=== PATIENT | male | born 1965 | race Two or more races ===

== ENCOUNTER 2025-06-06 05:14 | Inpatient (IN) | payer BC, OTHER ==
[~2025-06-06] VITALS: Ht 160 cm; Wt 67.3 kg
--- NOTE | 2025-06-06 06:51 | ED.PDOC ---
History of Present Illness HPI Comments 60-year-old male who is Armenian-speaking presents to the ER with the chief complaint of testicular pain. Patient reports on having full body pain on Thursday of 05/31/2025. Patient has started to have testicular pain which started yesterday with no known trauma associated with nausea. Patient has bilateral flank pain which started today. Denies any other symptoms at this time. Denies chills, fever, N/V/D, SOB, CP. No other associated symptoms, modifiers, recent injuries or sick contacts present at this time. Chief Complaint: Testicle Pain Time Seen by MD: 06:50 Reviewed Notes: Nurses Notes, Medications, Allergies Allergies: Coded Allergies: NO KNOWN ALLERGIES (Unverified , 06/06/25) Information Source: Patient Mode of Arrival: Ambulatory Severity: Moderate Timing: Days Duration: Since onset, Days Prehospital treatment: None Past Medical History PAST MEDICAL HISTORY: Denies Surgical History: Denies all surgeries Family History Family History: Reviewed,noncontributory to illness, Unknown Social History Smoker: Non-Smoker Alcohol: Occasionally Drugs: Denies Drug Use Lives In: Home Constitutional: reports: others (Body pain); denies: chills, diaphoresis, fatigue, fever, malaise, sweats, weakness EENTM: denies: blurred vision, double vision, ear bleeding, ear discharge, ear drainage, ear pain, ear ringing, eye pain, eye redness, hearing loss, mouth pain, mouth swelling, nasal discharge, nose bleeding, nose congestion, nose pain, photophobia, tearing, throat pain, throat swelling, voice changes, others Respiratory: denies: cough, hemoptysis, orthopnea, SOB at rest, shortness of breath, SOB with excertion, stridor, wheezing, others Cardiovascular: denies: chest pain, dizzy spells, diaphoresis, Dyspnea on exertion, edema, irregular heart beat, left arm pain, lightheadedness, palpitations, PND, syncope, others Gastrointestinal: denies: abdomen distended, abdominal pain, blood streaked bowels, constipated, diarrhea, dysphagia, difficulty swallowing, hematemesis, melena, nausea, poor appetite, poor fluid intake, rectal bleeding, rectal pain, vomiting, others Genitourinary: reports: flank pain, testicle pain; denies: burning, dysuria, frequency, hematuria, incontinence, penile discharge, penile sore, pain, testicle swelling, urgency, others Neurological: denies: dizziness, fainting, headache, left sided numbness, left sided weakness, numbness, paresthesia, pre-existing deficit, right sided numbness, right sided weakness, seizure, speech problems, tingling, tremors, weakness, others Musculoskeletal: denies: back pain, gout, joint pain, joint swelling, muscle pain, muscle stiffness, neck pain, others Integumetry: denies: bruises, change in color, change in hair/nails, dryness, laceration, lesions, lumps, rash, wounds, others Allergic/Immunocompromised: denies: Difficulty Healing, Frequent Infections, Hives, Itching, others Hematologic/Lymphatic: denies: anemia, blood clots, easy bleeding, easy bruising, swollen glands, others Endocrine: denies: excessive hunger, excessive sweating, excessive thirst, excessive urination, flushing, intolerance to cold, intolerance to heat, unexplained weight gain, unexplained weight loss, others Psychiatric: denies: anxiety, bipolar disorder, depression, hopeless, panic disorder, schizophrenia, sleepless, suicidal, others All Other Systems: Reviewed and Negative Physical Exam General Appearance: Moderate Distress, Normal HEENT: Normal ENT Inspection, Pharynx Normal, TMs Normal Neck: Full Range of Motion, Non-Tender, Normal, Normal Inspection Respiratory: Chest Non-Tender, Lungs Clear, No Accessory Muscle Use, No Respiratory Distress, Normal Breath Sounds Cardiovascular: No Edema, No JVD, No Murmur, No Gallop, Normal Peripheral Pulses, Regular Rate/Rhythm Breast Exam: Deferred Gastrointestinal: No Organomegaly, Non Tender, No Pulsatile Mass, Normal Bowel Sounds, Soft Genitalia: Deferred Pelvic: Deferred Rectal: Deferred Extremities: No calf tenderness, Normal capillary refill, Normal inspection, Normal range of motion, Non-tender, No pedal edema Musculoskeletal : Apperance: Normal Neurologic: Alert, hull molder II-XII nml as Tested, No Motor Deficits, Normal Affect, Normal Mood, No Sensory Deficits Cerebellar Function: Normal Reflexes: Normal Skin: Dry, Normal Color, Warm Peripheral Pulses: 3+ Radial (R), 3+ Radial (L) Lymphatic: No Adenopathy Was a procedure done? Was a procedure done?: No Differential Dx Considerations may include: Inguinal strain Hernia X-Ray, Labs, Meds, VS Vital Signs Date Time Temp Pulse Resp B/P (MAP) Pulse Ox O2 Delivery O2 Flow Rate FiO2 06/06/25 08:55 80 16 110/72 06/06/25 08:25 85 16 107/65 06/06/25 08:23 97.8 85 16 107/65 (79) 97.8 06/06/25 07:46 97 Room Air 06/06/25 06:47 98.5 85 16 92/53 (66) 97 98.5 06/06/25 05:16 97.7 99 20 111/63 95 97.7 Lab Test 06/06/25 09:14 06/06/25 08:28 Range/Units Lactic Acid Level 2.2 *H 0.4-2.0 mmol/L White Blood Count 31.8 *H 4.4-10.8 10^3/uL Red Blood Count 4.06 L 4.5-5.90 10^6/uL Hemoglobin 13.5 13.5-17.5 g/dL Hematocrit 40.2 L 41.0-53.0 % Mean Corpuscular Volume 99.1 80.0-100.0 fL Mean Corpuscular Hemoglobin 33.2 H 28.0-32.0 pg Mean Corpuscular Hemoglobin Concent 33.5 32.0-36.0 g/dL Red Cell Distribution Width 13.8 11.8-14.3 % Platelet Count 144 140-450 10^3/uL Mean Platelet Volume 8.3 6.9-10.8 fL Neutrophils (%) (Auto) 37.0-80.0 % Lymphocytes (%) (Auto) 10.0-50.0 % Monocytes (%) (Auto) 0.0-12.0 % Basophils (%) (Auto) 0.0-2.0 % Neutrophils # (Auto) 1.6-8.6 10 ^3/uL Lymphocytes # (Auto) 0.4-5.4 10 ^3/uL Monocytes # (Auto) 0-1.3 10 ^3/uL Differential Total Cells Counted 100.0 100 Neutrophils % (Manual) 67 37.0-80.0 Band Neutrophils % (Manual) 14 Lymphocytes % (Manual) 10 10.0-50.0 Monocytes % (Manual) 6 0-12 Eosinophils % (Manual) 0 0-7 Basophils % (Manual) 0 0.0-2.0 Metamyelocytes % (manual) 0 Myelocytes % (Manual) 0 Promyelocytes % (Manual) 0 Blast Cells % (Manual) 2 Reactive Lymphocytes 1 Smudge Cells 2 /100 WBC Platelet Estimate Decrea Large Platelets Few Giant Platelets Few Stomatocytes Moderate Sodium Level 142 136-145 mmol/L Potassium Level 2.8 L 3.5-5.1 mmol/L Chloride Level 110 H 98-107 mmol/L Carbon Dioxide Level 19 L 20-31 mmol/L Anion Gap 13 5-15 Blood Urea Nitrogen 31 H 9-23 mg/dL Creatinine 1.69 H 0.700-1.30 mg/dL Glomerular Filtration Rate Calc 45 >90 mL/min BUN/Creatinine Ratio 18.3 10.0-20.0 Serum Glucose 120 H 74-106 mg/dL Calcium Level 8.7 8.7-10.4 mg/dL Current Medications Medications (Trade) Dose Ordered Sig/Candi Route Start Time Stop Time Status Last Admin Acetaminophen/ Hydrocodone Bitart ([place] 10/325MG Tab) 1 tab ONCE ONCE PO 06/06/25 07:00 06/06/25 07:01 DC 06/06/25 07:00 Hydromorphone HCl (Dilaudid Injection) 1 mg ONCE ONCE IV 06/06/25 07:15 06/06/25 07:16 DC 06/06/25 08:25 Ondansetron HCl (Zofran) 4 mg ONCE ONCE IV 06/06/25 07:15 06/06/25 07:16 DC 06/06/25 08:24 Sodium Chloride 1,000 ml @ 1,000 mls/hr Q1H ONCE IV 06/06/25 07:15 06/06/25 08:14 DC 06/06/25 07:15 Ceftriaxone Sodium 50 ml @ 100 mls/hr ONCE ONCE IV 06/06/25 09:15 06/06/25 09:44 DC 06/06/25 09:28 Sodium Chloride 1,000 ml @ 1,000 mls/hr Q1H ONCE IV 06/06/25 09:15 06/06/25 10:14 DC 06/06/25 09:28 Sodium Chloride 1,000 ml @ 150 mls/hr Q6H40M ONCE IV 06/06/25 09:15 06/06/25 15:54 06/06/25 09:34 PROCEDURE(s): TESUS - TESTICULAR ULTRASOUND IMPRESSION: 1. Findings concerning for acute right epididymitis orchitis. Complex right hydrocele and right scrotal thickening noted. 2. Arterial and venous waveforms documented in both testes. Patient alert. Complaining of testicular pain. Vitals stable. Blood pressure on the low side. Establish intravenous access. Was given fluids. Was given pain medication. Was given Zofran. WBC elevated. Possible sepsis. Was given Zosyn. Was given clindamycin. Ultrasound of the testicle does show orchitis. Explained to the patient. Continue monitoring. Time of 1ST Reevaluation: 07:20 Reevaluation 1ST: Unchanged Patient Education/Counseling: Diagnosis, Treatment, Prognosis Family Education/Counseling: No Family Present SEPSIS Sepsis Screen Date sepsis recognized/suspect: Jun 06, 2025 Time Sepsis recognized/suspect: 519 Recent Procedure: No On Antibiotic Therapy: No Respiratory Rate >20: No Heart Rate >90: No Temp<36 C (96.8 F) or >38.3 C: No SBP <90 or MAP <65 mmHG: No New Acute Mental Status Change: No Is the patient on CPAP, BIPAP,: No Physician Orders Testicular Ultrasound (06/06/25 06:46) Urinalysis (06/06/25 08:15) Blood Culture (06/06/25 09:04) Sodium Chloride 0.9% (06/06/25 09:15) * Urology Consult (06/06/25 09:07) Chlamydia/Gc Amplification (06/06/25 10:19) Admit (06/06/25 10:28) Code Status (06/06/25 10:28) 2 Gm Sodium Diet (06/06/25 Lunch) Hydrocodone-Acet 5/325mg Tab ([place] 5/32 (06/06/25 10:30) Ondansetron Hcl (Zofran) (06/06/25 10:30) Docusate Sodium Capsule (Colace Capsule) (06/06/25 10:30) Complete Blood Count (06/07/25 04:00) Comprehensive Metabolic Panel (06/07/25 04:00) Condition: Serious (06/06/25 10:28) Acetaminophen Tablet (Tylenol Tablet) (06/06/25 10:30) Bladder Scan (06/06/25 ) Azithromycin 500mg/ 250ml (Zithromax 50 (06/07/25 10:00) Azithromycin 500mg/ 250ml (Zithromax 50 (06/06/25 10:30) Ceftriaxone 1gm/50ml (Rocephin) (06/07/25 09:00) Vital Signs Date Time Temp Pulse Resp B/P (MAP) Pulse Ox O2 Delivery O2 Flow Rate FiO2 06/06/25 08:55 80 16 110/72 06/06/25 08:25 85 16 107/65 06/06/25 08:23 97.8 85 16 107/65 (79) 97.8 06/06/25 07:46 97 Room Air 06/06/25 06:47 98.5 85 16 92/53 (66) 97 98.5 06/06/25 05:16 97.7 99 20 111/63 95 97.7 Laboratory Tests Test 06/06/25 08:28 06/06/25 09:14 White Blood Count 31.8 10^3/uL (4.4-10.8) *H Lactic Acid Level 2.2 mmol/L (0.4-2.0) *H Medications Medications Dose Ordered Sig/Candi Route Start Time Stop Time Status Last Admin Dose Admin Acetaminophen/ Hydrocodone Bitart 1 tab ONCE ONCE PO 06/06/25 07:00 06/06/25 07:01 DC 06/06/25 07:00 Ceftriaxone Sodium 50 ml @ 100 mls/hr ONCE ONCE IV 06/06/25 09:15 06/06/25 09:44 DC 06/06/25 09:28 Hydromorphone HCl 1 mg ONCE ONCE IV 06/06/25 07:15 06/06/25 07:16 DC 06/06/25 08:25 Ondansetron HCl 4 mg ONCE ONCE IV 06/06/25 07:15 06/06/25 07:16 DC 06/06/25 08:24 Sodium Chloride 1,000 ml @ 150 mls/hr Q6H40M ONCE IV 06/06/25 09:15 06/06/25 15:54 06/06/25 09:34 Sodium Chloride 1,000 ml @ 1,000 mls/hr Q1H ONCE IV 06/06/25 07:15 06/06/25 08:14 DC 06/06/25 07:15 Sodium Chloride 1,000 ml @ 1,000 mls/hr Q1H ONCE IV 06/06/25 09:15 06/06/25 10:14 DC 06/06/25 09:28 Departure 1 Departure Time of Disposition: 07:05 Impression: Primary Impression: Sepsis, unspecified organism Qualified Codes: A41.9 - Sepsis, unspecified organism Additional Impression: Orchitis Disposition: ADMITTED INPATIENT Admit to: Med Surg Condition: Guarded Critical Care Note Critical Care Time?: No Stability Stability form required: No Heart Score Heart Score: Heart Score Response (Comments) Value History N/A 0 EKG N/A 0 Age N/A 0 Risk Factors N/A 0 Troponin N/A 0 Total 0 I personally scribed for JARON OGLESBY MD ([email or web address]) on 06/06/25 at 06:51. Electronically submitted by Alli Shahid ([email or web address]). I personally scribed for JARON OGLESBY MD ([email or web address]) on 06/06/25 at 10:43. Electronically submitted by Uri Lopez ([email or web address]). JARON OGLESBY MD Jun 06, 2025 06:51
[2025-06-06] MEDS: HYDROcodone-ACET 10/325MG TAB PO ONE (07:00)
[2025-06-06] MEDS: SODIUM CHLORIDE 0.9% 1,000 ML IV ONE ×3 (07:15→09:34)
--- NOTE | 2025-06-06 08:08 | DVH ---
US TESTICULAR ULTRASOUND HISTORY: torsion COMPARISON: None FINDINGS: Transverse and longitudinal grayscale and Doppler sonographic images were obtained of the s crotum/testicles. Right testis: Size: 4.2 x 4.1 x 3.6 cm Doppler flow: normal Echogenicity: Heterogeneous Mass:no Hydrocele: Present, complex Epididymis: Measures 1.5 cm Varicocele: Absent Other: Hyperemia, scrotal wall thickening Left testis: Size: 4.0 x 2.6 x 3.5 cm Doppler flow: normal Echogenicity: normal Mass:no Hydrocele: Present Epididymis:normal Varicocele: Absent Other:none IMPRESSION: 1. Findings concerning for acute right epididymitis orchitis. Complex right hydrocele and right scrot al thickening noted. 2. Arterial and venous waveforms documented in both testes.
[2025-06-06] MEDS: ONDANSETRON HCL 4 MG/2 ML VIAL IV ONE (08:24)
[2025-06-06] MEDS: HYDROmorphone HCL 2 MG/ML VL/or syr IV ONE (08:25)
[2025-06-06 09:02] LABS: Hematocrit 40.2 % (41.0-53.0); Hemoglobin 13.5 g/dL (13.5-17.5); Mean Corpuscular Hemoglobin 33.2 pg (28.0-32.0); Mean Corpuscular Volume 99.1 fL (80.0-100.0)
[2025-06-06 09:11] LABS: Sodium 142 mmol/L (136-145)
[2025-06-06 09:12] LABS: Anion Gap 13 (5-15); Calcium 8.7 mg/dL (8.7-10.4)
[2025-06-06 09:17] LABS: BUN/Creatinine Ratio 18.3 (10.0-20.0); Blood Urea Nitrogen 31 mg/dL (9-23); Carbon Dioxide 19 mmol/L (20-31); Chloride 110 mmol/L (98-107); Glucose 120 mg/dL (74-106); Potassium 2.8 mmol/L (3.5-5.1)
[2025-06-06 10:10] LABS: Lactic Acid w/Reflex 2.2 mmol/L (0.4-2.0)
[2025-06-06] MEDS ORDERED: DOCUSATE SOD 100 MG CAP PO PRN (10:30)
[2025-06-06 10:38] LABS: Smudge Cells 2 /100 WBC; Total Cells Counted 100.0 (100)
[2025-06-06 10:39] LABS: Giant Platelets Few; Stomatocytes Moderate
--- NOTE | 2025-06-06 10:42 | DVHHP2 ---
History of Present Illness Reason for Visit: right testicle pain History of Present Illness Abdulkadir Esquivel is a 60-year-old male with no significant past medical history who came to the hospital for right testicular pain and difficulty urinating. Patient states his pain began yesterday about 1600. He states his right testicle is swollen and very painful to the touch. Denies ever having a problem like this before. Past Surgical History: None Smoke: <1 pack per day ALCOHOL: none Drugs: None Lives: with Family Domestic Violence: Neg Review of Systems Constitutional: No: Fever, Chills, Sweats, Weakness, Malaise, Other Eyes: No: Pain, Vision change, Conjunctivae inflammation, Eyelid inflammation, Other, Redness ENT: No: Ear pain, Ear discharge, Nose pain, Nose discharge, Nose congestion, Mouth pain, Mouth swelling, Throat pain, Throat swelling, Other Respiratory: No: Cough, Dry, Shortness of breath, SOB with excertion, Wheezing, Hemoptysis, Pleuritic Pain, Sputum, Wheezing, Other Cardiovascular: No: Chest Pain, Palpitations, Orthopnea, Paroxysmal Noc. Dyspnea, Edema, Lt Headedness, Other Gastrointestinal: No: Nausea, Vomiting, Abdominal Pain, Diarrhea, Constipation, Melena, Hematochezia, Other Genitourinary: No Dysuria, No Frequency, No Incontinence, No Hematuria; Retention, Other (testicular pain) Musculoskeletal: No: other, neck pain, shoulder pain, arm pain, back pain, hand pain, leg pain, foot pain Skin: No: Rash, Lesions, Jaundice, Bruising, Other Neurological: No: Weakness, Numbness, Incoordination, Change in speech, Confusion, Seizures, Other Allergies: Coded Allergies: NO KNOWN ALLERGIES (Unverified , 06/06/25) Exam Vital Signs Vital Signs Date Time Temp Pulse Resp B/P (MAP) Pulse Ox O2 Delivery O2 Flow Rate FiO2 06/06/25 08:55 80 16 110/72 06/06/25 08:23 97.8 97.8 06/06/25 07:46 97 Room Air General Appearance: Alert, Oriented X3 HEENT: Atraumatic, PERRLA Respiratory: Clear to auscultation, Normal air movement Cardiovascular: Regular rate, Normal S1, Normal S2, No murmurs Abdominal: Normal bowel sounds, Soft, No tenderness, No hepatospenomegaly Extremities: No clubbing, No cyanosis, No edema, Normal pulses, No tenderness/swelling Skin: No rashes, No breakdown, No significant lesion Neuro: Normal gait, Normal speech, Strength at 5/5 X4 ext, Normal tone Psych/Mental Status: Mental status NL, Mood NL Labs/Xrays Labs Test 06/06/25 09:14 06/06/25 08:28 Range/Units Lactic Acid Level 2.2 *H 0.4-2.0 mmol/L White Blood Count 31.8 *H 4.4-10.8 10^3/uL Red Blood Count 4.06 L 4.5-5.90 10^6/uL Hemoglobin 13.5 13.5-17.5 g/dL Hematocrit 40.2 L 41.0-53.0 % Mean Corpuscular Volume 99.1 80.0-100.0 fL Mean Corpuscular Hemoglobin 33.2 H 28.0-32.0 pg Mean Corpuscular Hemoglobin Concent 33.5 32.0-36.0 g/dL Red Cell Distribution Width 13.8 11.8-14.3 % Platelet Count 144 140-450 10^3/uL Mean Platelet Volume 8.3 6.9-10.8 fL Neutrophils (%) (Auto) 37.0-80.0 % Lymphocytes (%) (Auto) 10.0-50.0 % Monocytes (%) (Auto) 0.0-12.0 % Basophils (%) (Auto) 0.0-2.0 % Neutrophils # (Auto) 1.6-8.6 10 ^3/uL Lymphocytes # (Auto) 0.4-5.4 10 ^3/uL Monocytes # (Auto) 0-1.3 10 ^3/uL Sodium Level 142 136-145 mmol/L Potassium Level 2.8 L 3.5-5.1 mmol/L Chloride Level 110 H 98-107 mmol/L Carbon Dioxide Level 19 L 20-31 mmol/L Anion Gap 13 5-15 Blood Urea Nitrogen 31 H 9-23 mg/dL Creatinine 1.69 H 0.700-1.30 mg/dL Glomerular Filtration Rate Calc 45 >90 mL/min BUN/Creatinine Ratio 18.3 10.0-20.0 Serum Glucose 120 H 74-106 mg/dL Calcium Level 8.7 8.7-10.4 mg/dL TESTICULAR ULTRASOUND Right testis: Size: 4.2 x 4.1 x 3.6 cm Doppler flow: normal Echogenicity: Heterogeneous Mass:no Hydrocele: Present, complex Epididymis: Measures 1.5 cm Varicocele: Absent Other: Hyperemia, scrotal wall thickening Left testis: Size: 4.0 x 2.6 x 3.5 cm Doppler flow: normal Echogenicity: normal Mass:no Hydrocele: Present Epididymis:normal Varicocele: Absent Other:none IMPRESSION: 1. Findings concerning for acute right epididymitis orchitis. Complex right hydrocele and right scrotal thickening noted. 2. Arterial and venous waveforms documented in both testes. SEPSIS Sepsis Screen Date sepsis recognized/suspect: Jun 06, 2025 Time Sepsis recognized/suspect: 822 Recent Procedure: No On Antibiotic Therapy: No Respiratory Rate >20: No Heart Rate >90: No Temp<36 C (96.8 F) or >38.3 C: No SBP <90 or MAP <65 mmHG: No New Acute Mental Status Change: No Is the patient on CPAP, BIPAP,: No Physician Orders Testicular Ultrasound (06/06/25 06:46) Complete Blood Count (06/06/25 08:15) Urinalysis (06/06/25 08:15) Manual Differential (06/06/25 08:28) Blood Culture (06/06/25 09:04) Sodium Chloride 0.9% (06/06/25 09:15) * Urology Consult (06/06/25 09:07) Chlamydia/Gc Amplification (06/06/25 10:19) Admit (06/06/25 10:28) Code Status (06/06/25 10:28) 2 Gm Sodium Diet (06/06/25 Lunch) Hydrocodone-Acet 5/325mg Tab ([place] 5/32 (06/06/25 10:30) Ondansetron Hcl (Zofran) (06/06/25 10:30) Docusate Sodium Capsule (Colace Capsule) (06/06/25 10:30) Complete Blood Count (06/07/25 04:00) Comprehensive Metabolic Panel (06/07/25 04:00) Condition: Serious (06/06/25 10:28) Acetaminophen Tablet (Tylenol Tablet) (06/06/25 10:30) Bladder Scan (06/06/25 ) Azithromycin 500mg/ 250ml (Zithromax 50 (06/07/25 10:00) Azithromycin 500mg/ 250ml (Zithromax 50 (06/06/25 10:30) Ceftriaxone Ivpb Rocephin (06/07/25 09:00) Vital Signs Date Time Temp Pulse Resp B/P (MAP) Pulse Ox O2 Delivery O2 Flow Rate FiO2 06/06/25 08:55 80 16 110/72 06/06/25 08:25 85 16 107/65 06/06/25 08:23 97.8 85 16 107/65 (79) 97.8 06/06/25 07:46 97 Room Air 06/06/25 06:47 98.5 85 16 92/53 (66) 97 98.5 06/06/25 05:16 97.7 99 20 111/63 95 97.7 Laboratory Tests Test 06/06/25 08:28 06/06/25 09:14 White Blood Count 31.8 10^3/uL (4.4-10.8) *H Lactic Acid Level 2.2 mmol/L (0.4-2.0) *H Medications Medications Dose Ordered Sig/Candi Route Start Time Stop Time Status Last Admin Dose Admin Acetaminophen/ Hydrocodone Bitart 1 tab ONCE ONCE PO 06/06/25 07:00 06/06/25 07:01 DC 06/06/25 07:00 1 TAB Ceftriaxone Sodium 50 ml @ 100 mls/hr ONCE ONCE IV 06/06/25 09:15 06/06/25 09:44 DC 06/06/25 09:28 100 MLS/HR Hydromorphone HCl 1 mg ONCE ONCE IV 06/06/25 07:15 06/06/25 07:16 DC 06/06/25 08:25 1 MG Ondansetron HCl 4 mg ONCE ONCE IV 06/06/25 07:15 06/06/25 07:16 DC 06/06/25 08:24 4 MG Sodium Chloride 1,000 ml @ 150 mls/hr Q6H40M ONCE IV 06/06/25 09:15 06/06/25 15:54 06/06/25 09:34 150 MLS/HR Sodium Chloride 1,000 ml @ 1,000 mls/hr Q1H ONCE IV 06/06/25 07:15 06/06/25 08:14 DC 06/06/25 07:15 1,000 MLS/HR Sodium Chloride 1,000 ml @ 1,000 mls/hr Q1H ONCE IV 06/06/25 09:15 06/06/25 10:14 DC 06/06/25 09:28 1,000 MLS/HR Assessment/Plan Assessment/Plan Assessment: Orchitis and epididymitis, Leukocytosis, Lactic acidosis, Hypokalemia, Possible sepsis, Plan: Admit to Med-Surg, Urology consult, IV antibiotics, IV hydration, Bladder scan, Gonorrhea/chlamydia testing, Manage/Monitor electrolytes closely, Plan discussed with: Patient, Spouse My Orders Orders - LUCILA REES Procedure Category Date Status Time Chlamydia/Gc LAB 06/06/25 Transmitted Amplification 10:19 Admit ADMIT 06/06/25 Transmitted 10:28 Code Status CODE 06/06/25 Transmitted 10:28 2 Gm Sodium Diet DIET 06/06/25 Transmitted Lunch Hydrocodone-Acet PHA 06/06/25 Transmitted 5/325mg Tab ([place] 10:30 Ondansetron Hcl PHA 06/06/25 Transmitted (Zofran) 10:30 Docusate Sodium PHA 06/06/25 Transmitted Capsule (Colace 10:30 Complete Blood Count LAB 06/07/25 Verified 04:00 Comprehensive LAB 06/07/25 Verified Metabolic Panel 04:00 Condition: Serious VJ 06/06/25 Transmitted 10:28 Acetaminophen Tablet PHA 06/06/25 Transmitted (Tylenol Tablet) 10:30 Bladder Scan ED NURSING 06/06/25 Transmitted Azithromycin 500mg/ PHA 06/07/25 Transmitted 250ml (Zithromax 50 10:00 Azithromycin 500mg/ PHA 06/06/25 Transmitted 250ml (Zithromax 50 10:30 Ceftriaxone Ivpb PHA 06/07/25 Transmitted Rocephin 09:00 Date of Service: Jun 06, 2025 Billing Provider: LUCILA REES Common Visit Codes: [id number] INP/OBS CARE (MOD) LUCILA REES Jun 06, 2025 10:41
[2025-06-06] MEDS: CLINDAMYCIN 600MG IV 50 ML IV ONE (10:46)
[2025-06-06 11:40] VITALS: BP 126/70; PULSE 80; RESP 18; TEMP 97.6; O2SAT 98
--- NOTE | 2025-06-06 12:19 | DVHINCON2 ---
Date of service: Jun 06, 2025 Referring Physician Hospitalist Reason for Consultation epididymoorchitis History of Present Illness History Source: Patient, RN Notes, MD Notes Exam Limitations: Language barrier HPI 60-year-old male who is Yemeni-speaking presents to the ER with the chief complaint of testicular pain. Patient reports on having full body pain on Thu of 05/31/2025. Patient has started to have testicular pain which started yesterday with no known trauma associated with nausea. Patient has bilateral flank pain which started today. Denies any other symptoms at this time. Denies chills, fever, N/V/D, SOB, CP. No other associated symptoms, modifiers, recent injuries or sick contacts present at this time. Past Medical History Patient Family History: Depression G8 MOTHER Diabetes mellitus G8 MOTHER Hypertension G8 MOTHER Review of Systems Genitourinary: Pain H&P Exam Vital Signs Vital Signs Date Time Temp Pulse Resp B/P (MAP) Pulse Ox O2 Delivery O2 Flow Rate FiO2 06/06/25 11:40 Room Air* 0 21 06/06/25 08:55 80 16 110/72 06/06/25 08:23 97.8 97.8 06/06/25 07:46 97 General Appeara: Well developed, Well nourished, Normal Appearance Neuro/Mental St: Alert, Oriented Appearance: Appropriate appearance, Appropriate insight Eye contact/ Speech: Cooperative, Good eye contact, Normal speech Skin Exam: Normal inspection, Normal color, Warm/dry Labs/Xrays [place] [id number] Ph: [phone] DIAGNOSTIC IMAGING Diagnostic Imaging Report : [id number] Signed PATIENT: BISHOP MYERS ACCT: [id number] UNIT: [id number] : 1965 LOC: ER ROOM / BED: / AGE / SEX: 60 / M ADM STATUS: REG ER SERVICE 0646 ORDERING PHYSICIAN: JARON OGLESBY MD PROCEDURE(s): TESUS - TESTICULAR ULTRASOUND REASON: torsion ORDER NUMBER(s): [id number], ACCESSION NUMBER(s): [id number] US TESTICULAR ULTRASOUND HISTORY: torsion COMPARISON: None FINDINGS: Transverse and longitudinal grayscale and Doppler sonographic images were obtained of the scrotum/testicles. Right testis: Size: 4.2 x 4.1 x 3.6 cm Doppler flow: normal Echogenicity: Heterogeneous Mass:no Hydrocele: Present, complex Epididymis: Measures 1.5 cm Varicocele: Absent Other: Hyperemia, scrotal wall thickening Left testis: Size: 4.0 x 2.6 x 3.5 cm Doppler flow: normal Echogenicity: normal Mass:no Hydrocele: Present Epididymis:normal Varicocele: Absent Other:none IMPRESSION: 1. Findings concerning for acute right epididymitis orchitis. Complex right hydrocele and right scrotal thickening noted. 2. Arterial and venous waveforms documented in both testes. ATED BY: KATHRYN KOO MD DICTATED DATE/TIME: 06/06/25805 SIGNED BY: KATHRYN KOO MD SIGNED DATE/TIME: 06/06/25805 CC: Labs Test 06/06/25 11:32 06/06/25 08:28 Range/Units White Blood Count 31.8 *H 4.4-10.8 10^3/uL Red Blood Count 4.06 L 4.5-5.90 10^6/uL Hemoglobin 13.5 13.5-17.5 g/dL Hematocrit 40.2 L 41.0-53.0 % Mean Corpuscular Volume 99.1 80.0-100.0 fL Mean Corpuscular Hemoglobin 33.2 H 28.0-32.0 pg Mean Corpuscular Hemoglobin Concent 33.5 32.0-36.0 g/dL Red Cell Distribution Width 13.8 11.8-14.3 % Platelet Count 144 140-450 10^3/uL Mean Platelet Volume 8.3 6.9-10.8 fL Neutrophils (%) (Auto) 37.0-80.0 % Lymphocytes (%) (Auto) 10.0-50.0 % Monocytes (%) (Auto) 0.0-12.0 % Basophils (%) (Auto) 0.0-2.0 % Neutrophils # (Auto) 1.6-8.6 10 ^3/uL Lymphocytes # (Auto) 0.4-5.4 10 ^3/uL Monocytes # (Auto) 0-1.3 10 ^3/uL Differential Total Cells Counted 100.0 100 Neutrophils % (Manual) 67 37.0-80.0 Band Neutrophils % (Manual) 14 Lymphocytes % (Manual) 10 10.0-50.0 Monocytes % (Manual) 6 0-12 Eosinophils % (Manual) 0 0-7 Basophils % (Manual) 0 0.0-2.0 Metamyelocytes % (manual) 0 Myelocytes % (Manual) 0 Promyelocytes % (Manual) 0 Blast Cells % (Manual) 2 Reactive Lymphocytes 1 Smudge Cells 2 /100 WBC Platelet Estimate Decrea Large Platelets Few Giant Platelets Few Stomatocytes Moderate Sodium Level 142 136-145 mmol/L Potassium Level 2.8 L 3.5-5.1 mmol/L Chloride Level 110 H 98-107 mmol/L Carbon Dioxide Level 19 L 20-31 mmol/L Anion Gap 13 5-15 Blood Urea Nitrogen 31 H 9-23 mg/dL Creatinine 1.69 H 0.700-1.30 mg/dL Glomerular Filtration Rate Calc 45 >90 mL/min BUN/Creatinine Ratio 18.3 10.0-20.0 Serum Glucose 120 H 74-106 mg/dL Calcium Level 8.7 8.7-10.4 mg/dL Assessment/Plan Problem List: (1) Orchitis and epididymitis (2) Sepsis, unspecified organism (3) Acute abdominal pain Plan pain meds prn scrotal elevation serial US imaging if not improving clinically monitor for abscess formation Plan discussed with: Patient, Other FEDE LAIRD NP Jun 06, 2025 12:19
[2025-06-06 12:41] VITALS: BP 110/66; PULSE 79; RESP 18; TEMP 97.6; O2SAT 99
[2025-06-06] MEDS: AZITHROMYCIN 500MG/ 250ML 250 ML IV ONE (12:53)
--- NOTE | 2025-06-06 13:12 | DVH ---
INDICATION: flank pain TECHNIQUE: Multiple real-time sonographic images of the kidneys and bladder were obtained. COMPARISON: US TESTICULAR ULTRASOUND on DOS: 06/06/25 FINDINGS: The right kidney measures 11.8 cm in length, which is normal in size. There is normal echog enicity of the right kidney. No hydronephrosis. The left kidney measures 11.5 cm in length, which is normal in size. There is normal echogenicity of the left kidney. No hydronephrosis. The urinary bladder is not well distended. At the time of the examination, the bladder volume is radha mated at 39 cc. There is no large intraluminal bladder mass. The prostate volume is estimated at 34 c c. The visualized liver parenchyma is profoundly echogenic. IMPRESSION: Normal sonographic appearance of the kidneys. No hydronephrosis. Incidental note of diffusely echogenic liver parenchyma. This may be secondary to steatosis or anoth er diffuse hepatic process. Correlate clinically and with liver function tests.
[2025-06-06] MEDS: POTASSIUM EFFERVESENT TAB 25 MEQ PO ONE (16:27)
[2025-06-06] MEDS: hydrALAZINE HCL 20 MG/ML VL IV PRN (16:29)
[2025-06-06 16:40] VITALS: BP 150/80; PULSE 97; RESP 16; TEMP 99.6; O2SAT 98
[2025-06-06 16:43] LABS: Urine Protein, UAD TRACE (Negative); Urine WBC Clumps PRESENT /hpf (None Seen)
[2025-06-06 17:44] VITALS: TEMP 99
[2025-06-06 17:53] LABS: INR 1.08 (0.9-1.15); Partial Thromboplastin Time 30.0 SEC (24.5-34.5); Prothrombin Time 11.4 sec (9.3-11.8)
[2025-06-06 20:00] VITALS: PULSE 105; RESP 18
[2025-06-06 20:54] VITALS: BP 140/70; PULSE 112; RESP 18; TEMP 98.2; O2SAT 96
[2025-06-06 21:25] LABS: Magnesium 1.2 mg/dL (1.6-2.6); Potassium 3.5 mmol/L (3.5-5.1)
[2025-06-07] VITALS (9 sets, daily range): BP systolic 124–144; BP diastolic 68–85; PULSE 75–102; RESP 14–20; TEMP 97.8–99.5; O2SAT 93–100
[2025-06-07 06:12] LABS: Hematocrit 35.4 % (41.0-53.0); Hemoglobin 12.4 g/dL (13.5-17.5); Mean Corpuscular Hemoglobin 34.1 pg (28.0-32.0); Mean Corpuscular Volume 97.5 fL (80.0-100.0)
[2025-06-07 06:27] LABS: Anion Gap 13 (5-15); BUN/Creatinine Ratio 23.3 (10.0-20.0); Blood Urea Nitrogen 20 mg/dL (9-23); Sodium 143 mmol/L (136-145); Total Protein 6.0 g/dL (5.7-8.2)
[2025-06-07 06:30] LABS: Alanine Aminotransferase 161 U/L (7-40); Albumin 3.2 g/dL (3.2-4.8); Alkaline Phosphatase 280 U/L (46-116); Bilirubin, Total 1.9 mg/dL (0.2-1.0); Calcium 8.3 mg/dL (8.7-10.4); Carbon Dioxide 19 mmol/L (20-31); Chloride 111 mmol/L (98-107); Glucose 120 mg/dL (74-106); Potassium 2.8 mmol/L (3.5-5.1)
[2025-06-07 07:00] LABS: Stomatocytes Few; Total Cells Counted 100.0 (100)
--- NOTE | 2025-06-07 08:21 | DVH ---
ULTRASOUND ABDOMEN limited, 4 QUADRANTS INDICATION: FLUID CHECK FOR POSSIBLE PARACENTESIS Evaluate for ascites. TECHNIQUE: The four quadrants of the abdomen were scanned in rodriguez-scale to assess for the presence of ascites. N o solid organ assessment was performed. FINDINGS: No ascites IMPRESSIONS: 1. No ascites
[2025-06-07] MEDS: HYDROcodone-ACET 5/325MG TAB PO PRN (10:04)
[2025-06-07] MEDS: AZITHROMYCIN 500MG/ 250ML 250 ML IV SCH (10:04)
[2025-06-07] MEDS ORDERED: VANCOMYCIN PER PHARMACY 0 MG IV SCH (14:00)
[2025-06-07] MEDS: SOD CHL 0.9%/ KCL 40MEQ 1,000 ML IV SCH (14:00)
--- NOTE | 2025-06-07 14:42 | DVHPN2 ---
Subjective Patient continues to report having scrotal pain Reviewed: Care Plan, H&P, Labs, Medications Changes from previous H/P or p: No Changes General: Per HPI Eyes: No Pain, No Vision change, No Conjunctivae inflammation, No Eyelid inflammation, No Other, No Redness ENT: No Ear pain, No Ear discharge, No Nose pain, No Nose discharge, No Nose congestion, No Mouth pain, No Mouth swelling, No Throat pain, No Throat swelling, No Other Cardiovascular: No Chest Pain, No Palpitations, No Orthopnea, No Paroxysmal Noc. Dyspnea, No Edema, No Lt Headedness, No Other Respiratory: No Cough, No Dry, No Shortness of breath, No SOB with excertion, No Wheezing, No Hemoptysis, No Pleuritic Pain, No Sputum, No Other Gastrointestinal: No Nausea, No Vomiting, No Abdominal Pain, No Diarrhea, No Constipation, No Melena, No Hematochezia, No Other Genitourinary: No Dysuria, No Frequency, No Incontinence, No Hematuria; R etention, Other (testicular pain) Musculoskeletal: No other, No neck pain, No shoulder pain, No arm pain, No back pain, No hand pain, No leg pain, No foot pain Skin: No Rash, No Lesions, No Jaundice, No Bruising, No Other Objective Vitals Vital Signs Date Time Temp Pulse Resp B/P (MAP) Pulse Ox O2 Delivery O2 Flow Rate FiO2 06/07/25 13:00 97.8 92 18 132/68 (89) 94 97.8 06/07/25 08:00 Room Air* 0 21 Intake/Output Intake and Output 06/07/25 07:00 Intake Total 3950 ml Balance 3950 ml Intake Oral 700 ml IV Total 3250 ml # Voids 6 # Bowel Movements 2 General Appearance: Alert, Oriented X3, Cooperative, No acute distress HEENT: Atraumatic, PERRLA Lungs: Clear to auscultation, Normal air movement Cardiovascular: Normal S1, Normal S2 Abdomen: Normal bowel sounds, Soft, No tenderness, No hepatospenomegaly Musculoskeletal: Normal sensory function, Normal motor function Extremities: No clubbing, No cyanosis, No edema, Normal pulses, No tenderness/swelling Neuro: Normal gait, Normal speech Skin: Dry, Intact Psych/Mental Status: Mental status NL, Mood NL Medications Current Medications Medications Dose Ordered Sig/Candi Route Start Time Stop Time Status Last Admin Dose Admin Acetaminophen/ Hydrocodone Bitart 1 tab Q4HP PRN PO 06/06/25 10:30 06/07/25 10:04 1 TAB Ondansetron HCl 4 mg Q4HP PRN IV 06/06/25 10:30 Docusate Sodium 100 mg BIDPRN PRN PO 06/06/25 10:30 Acetaminophen 650 mg Q6HP PRN PO 06/06/25 10:30 Hydralazine HCl 10 mg Q6HP PRN IV 06/06/25 16:15 06/06/25 16:29 10 MG Potassium Chloride/Sodium Chloride 1,000 ml @ 100 mls/hr Q10H IV 06/07/25 14:00 Meropenem 50 ml @ 17 mls/hr Q8HR IV 06/07/25 14:00 Magnesium Sulfate/ Dextrose 100 ml @ 100 mls/hr Q1HR IV 06/07/25 14:00 06/07/25 15:59 Vancomycin HCl 0 ml @ 0 mls/hr PER PHARMACY IV 06/07/25 14:00 Pantoprazole Sodium 40 mg DAILY@0600 PO 06/08/25 06:00 Enoxaparin Sodium 40 mg DAILY SC 06/08/25 10:00 Laboratory Results Laboratory Tests 06/07/25 05:18 Chemistry Test 06/06/25 20:48 06/07/25 05:18 Magnesium Level 1.2 mg/dL (1.6-2.6) L Albumin 3.2 g/dL (3.2-4.8) Calcium Level 8.3 mg/dL (8.7-10.4) L Total Protein 6.0 g/dL (5.7-8.2) Coagulation Test 06/06/25 17:05 Prothrombin Time 11.4 sec (9.3-11.8) Prothrombin Time INR 1.08 (0.9-1.15) Activated Partial Thromboplast Time 30.0 SEC (24.5-34.5) LFT Test 06/07/25 05:18 Alanine Aminotransferase (ALT) 161 U/L (7-40) H Alkaline Phosphatase 280 U/L (46-116) H Aspartate Amino Transferase (AST) 50 U/L (13-40) H Total Bilirubin 1.9 mg/dL (0.2-1.0) H Urinalysis Test 06/06/25 15:50 Urine Color Yellow (Yellow) Urine Clarity Turbid (Clear) H Urine pH 5.5 (5.0-9.0) Urine Specific [place] 1.014 (1.001-1.035) Urine Protein Trace (Negative) H Urine Ketones Negative (Negative) Urine Blood 2+ /uL (Negative) H Urine Nitrite Negative (Negative) Urine Bilirubin Negative (Negative) Urine Urobilinogen 2 mg/dL (Negative) H Urine Leukocyte Esterase 3+ /uL (Negative) Urine RBC 20 /hpf (0 - 3) Urine WBC Clumps Present /hpf (None Seen) Urine Microscopic WBC 273 /HPF (0-3) H Urine Squamous Epithelial Cells None seen /hpf (<5) Urine Bacteria Few /hpf (None Seen) H Urine Glucose 1+ mg/dL (Normal) H Microbiology Microbiology Date/Time Source Procedure Growth Status 06/06/25 09:19 Blood Blood Culture - Preliminary Resulted Labs and/or images reviewed: Labs reviewed by me, Image(s) reviewed by me Assessment/Plan Assessment/Plan Impression: -sepsis , Gram-negative rods in blood -orchitis -complicated cystitis -transaminitis -hypokalemia -hypomagnesemia Plan: -potassium magnesium replacement -start IV hydration -blood and urine cultures -CT scan of the abdomen and pelvis -PPI -antibiotic therapy: Change to Meropenem and vancomycin -repeat labs in a.m. Total time spent with patient discussing and formulating plan of care: 35 minutes. This medical document was created using an electronic medical record system with [employer] dictation system. Although this document has been carefully reviewed, there may still be some phonetic and typographical errors. These areas are purely typographical due to imperfections of the software programs, and do not reflect any compromise in the patient's medical care Plan discussed with: Patient, Other (RN) My Orders Orders - RISSA MORAN BENEFITS REPRESENTATIVE Procedure Category Date Status Time Sod Chl 0.9%/ Kcl PHA 06/07/25 In Process 40meq 14:00 Meropenem 1gm Ivpb PHA 06/07/25 In Process (Merrem 1gm/50ml) 14:00 Magnesium Sulfate PHA 06/07/25 In Process 1gm/100ml 14:00 Vancomycin Per PHA 06/07/25 In Process Pharmacy 14:00 Complete Blood Count LAB 06/08/25 Verified 04:00 Comprehensive LAB 06/08/25 Verified Metabolic Panel 04:00 Urine Bacterial TYLER 06/07/25 Logged Culture 13:48 Magnesium LAB 06/08/25 Verified 04:00 Pantoprazole Tablet PHA 06/08/25 In Process (Protonix Tablet) 06:00 Enoxaparin Sodium PHA 06/08/25 In Process (Lovenox) 10:00 Erythrocyte LAB 06/07/25 In Process Sedimentation Rate 13:48 C-Reactive Protein LAB 06/07/25 In Process 13:48 Vancomycin PHA 06/07/25 In Process 1.5gm/250ml 14:30 Ct Ab Pel With Iv Con CT 06/07/25 Transmitted Only 14:34 Date of Service: Jun 07, 2025 Billing Provider: RISSA MORAN NP Common Visit Codes: [id number] INP/OBS CARE(HIGH) RISSA MORAN NP Jun 07, 2025 14:41
[2025-06-07] MEDS: VANCOMYCIN 1.5GM/250ML 250 ML IV ONE (15:05)
[2025-06-07] MEDS: MEROPENEM 1GM IVPB 50 ML IV SCH (15:05)
--- NOTE | 2025-06-07 15:23 | DVH ---
COMPUTERIZED TOMOGRAPHY ABDOMEN AND PELVIS WITH CONTRAST REASON FOR EXAM: Sepsis, Elevated LFTs COMPARISON: None TECHNIQUE: The exam was performed on a Multidetector scanner. Spiral scans were acquired from the shiloh phragm to the symphysis pubis after administration of IV contrast. 2-D coronal and sagittal reformatt ed images were provided. Radiation optimization: All CT scans at this facility use at least one of th lindsey dose optimization techniques: Automated exposure control mA and/or kV adjustment per patient size (includes targeted exams where dose is matched to clinical indication) or iterative reconstruction. CONTRAST ADMINISTRATION: 100 mL omnipaque 300 intravenously RADIATION DOSE: CTDI: 15.23 mGy DLP: 962.7 mGy-cm FINDINGS: There is mild platelike atelectasis in dependent lower lobes of the lungs. There is mild scattered gr ound-glass airspace disease in the right middle lobe. There is no pleural effusion. There is no nettie cardial effusion. The spleen is not enlarged. The liver is enlarged at approximately 19.6 cm in length. No focal hepat ic lesion is identified. The portal vein is patent. No calcified gallstone is identified. Motion art ifact degrades evaluation. The pancreas is grossly unremarkable. The adrenal glands are normal. The k idneys enhance symmetrically. No solid renal mass is identified. There is no hydronephrosis of either kidney. There is no abdominal aortic aneurysm. There is moderate soft plaque in the abdominal aorta causing approximately 40% luminal narrowing. No pathologic lymphadenopathy is identified by size crit eria. The urinary bladder is grossly unremarkable. The prostate is enlarged. No free fluid is ident ified in the abdomen or pelvis. There is moderate sigmoid diverticulosis without evidence of divertic ulitis. The colonic stool burden is overall small. The appendix is normal. There is no pathologic di stention of the small bowel. There is diffuse scrotal edema. There is stranding of the fat within th e right inguinal canal. No acute osseous abnormality is identified. IMPRESSION: Hepatomegaly. No focal liver lesion identified. The portal vein is patent. Diffuse scrotal edema. Fat stranding within the right inguinal canal. Correlate clinically and with physical exam. Prostatomegaly
[2025-06-07] MEDS: MAGNESIUM SULFATE 1GM/100ML 100 ML IV SCH (15:30)
[2025-06-07 16:07] LABS: Chlamydia Trachomatis, NAA Negative (Negative); Neisseria gonorrhoeae, NAA Negative (Negative)
[2025-06-07] MEDS: ACETAMINOPHEN 325 MG TAB PO PRN (18:14)
[2025-06-08] VITALS (8 sets, daily range): BP systolic 126–156; BP diastolic 70–88; PULSE 81–95; RESP 14–20; TEMP 97.8–99.8; O2SAT 90–99
[2025-06-08] MEDS: VANCOMYCIN 750MG KIT 100 ML IV SCH (01:45)
[2025-06-08] MEDS: PANTOPRAZOLE 40 MG TAB PO SCH (05:46)
[2025-06-08 06:19] LABS: Hematocrit 34.2 % (41.0-53.0); Hemoglobin 11.9 g/dL (13.5-17.5); Mean Corpuscular Hemoglobin 33.7 pg (28.0-32.0); Mean Corpuscular Volume 96.7 fL (80.0-100.0); Nucleated Red Blood Cells % 0.1 %
[2025-06-08 06:30] LABS: Anion Gap 9 (5-15); BUN/Creatinine Ratio 22.7 (10.0-20.0); Blood Urea Nitrogen 15 mg/dL (9-23); Calcium 8.8 mg/dL (8.7-10.4); Magnesium 1.9 mg/dL (1.6-2.6); Sodium 139 mmol/L (136-145); Total Protein 5.9 g/dL (5.7-8.2)
[2025-06-08 06:33] LABS: Alanine Aminotransferase 115 U/L (7-40); Albumin 3.2 g/dL (3.2-4.8); Alkaline Phosphatase 305 U/L (46-116); Bilirubin, Total 1.7 mg/dL (0.2-1.0); Carbon Dioxide 20 mmol/L (20-31); Chloride 110 mmol/L (98-107); Glucose 114 mg/dL (74-106); Potassium 2.7 mmol/L (3.5-5.1)
[2025-06-08] MEDS: ENOXAPARIN SOD 40 MG/0.4 ML SYRINGE SC SCH (09:06)
[2025-06-08] MEDS: POTASSIUM EFFERVESENT TAB 25 MEQ PO ONE (09:17)
[2025-06-08] MEDS: IOHEXOL 300 MG/ML 100ML BOTTLE IJ ONE (09:20)
[2025-06-08] MEDS: ONDANSETRON HCL 4 MG/2 ML VIAL IV PRN (12:41)
[2025-06-08 14:26] LABS: Potassium 3.0 mmol/L (3.5-5.1)
[2025-06-08 14:29] LABS: Magnesium 1.7 mg/dL (1.6-2.6)
[2025-06-09] VITALS (7 sets, daily range): BP systolic 114–159; BP diastolic 48–84; PULSE 60–86; RESP 17–19; TEMP 98.2–99.9; O2SAT 95–97
[2025-06-09 06:35] LABS: Hematocrit 34.7 % (41.0-53.0); Hemoglobin 12.2 g/dL (13.5-17.5); Mean Corpuscular Hemoglobin 34.0 pg (28.0-32.0); Mean Corpuscular Volume 96.9 fL (80.0-100.0); Nucleated Red Blood Cells % 0.0 %
[2025-06-09 07:23] LABS: Anion Gap 13 (5-15); Carbon Dioxide 19 mmol/L (20-31); Chloride 109 mmol/L (98-107); Potassium 3.1 mmol/L (3.5-5.1); Sodium 141 mmol/L (136-145)
[2025-06-09 07:29] LABS: BUN/Creatinine Ratio 20.6 (10.0-20.0); Blood Urea Nitrogen 13 mg/dL (9-23); Calcium 8.5 mg/dL (8.7-10.4); Glucose 112 mg/dL (74-106)
[2025-06-09 08:07] LABS: Prostate Specific Antigen 24.0 ng/mL (0.0-4.0)
--- NOTE | 2025-06-09 11:15 | DVHPN2 ---
Subjective Patient continues to report having scrotal pain Reviewed: Care Plan, H&P, Labs, Medications Changes from previous H/P or p: No Changes General: Per HPI Eyes: No Pain, No Vision change, No Conjunctivae inflammation, No Eyelid inflammation, No Other, No Redness ENT: No Ear pain, No Ear discharge, No Nose pain, No Nose discharge, No Nose congestion, No Mouth pain, No Mouth swelling, No Throat pain, No Throat swelling, No Other Cardiovascular: No Chest Pain, No Palpitations, No Orthopnea, No Paroxysmal Noc. Dyspnea, No Edema, No Lt Headedness, No Other Respiratory: No Cough, No Dry, No Shortness of breath, No SOB with excertion, No Wheezing, No Hemoptysis, No Pleuritic Pain, No Sputum, No Other Gastrointestinal: No Nausea, No Vomiting, No Abdominal Pain, No Diarrhea, No Constipation, No Melena, No Hematochezia, No Other Genitourinary: No Dysuria, No Frequency, No Incontinence, No Hematuria; R etention, Other (testicular pain) Musculoskeletal: No other, No neck pain, No shoulder pain, No arm pain, No back pain, No hand pain, No leg pain, No foot pain Skin: No Rash, No Lesions, No Jaundice, No Bruising, No Other Objective Vitals Vital Signs Date Time Temp Pulse Resp B/P (MAP) Pulse Ox O2 Delivery O2 Flow Rate FiO2 06/08/25 13:00 98.7 81 14 146/79 (101) 96 98.7 06/08/25 08:10 Room Air* 0 21 Intake/Output Intake and Output 06/08/25 07:00 Intake Total 2867 ml Balance 2867 ml Intake Oral 1500 ml IV Total 1367 ml # Voids 15 # Bowel Movements 1 General Appearance: Alert, Oriented X3, Cooperative, No acute distress HEENT: Atraumatic, PERRLA Lungs: Clear to auscultation, Normal air movement Cardiovascular: Normal S1, Normal S2 Abdomen: Normal bowel sounds, Soft, No tenderness, No hepatospenomegaly Musculoskeletal: Normal sensory function, Normal motor function Extremities: No clubbing, No cyanosis, No edema, Normal pulses, No tenderness/swelling Neuro: Normal gait, Normal speech Skin: Dry, Intact Psych/Mental Status: Mental status NL, Mood NL Medications Current Medications Medications Dose Ordered Sig/Candi Route Start Time Stop Time Status Last Admin Dose Admin Acetaminophen/ Hydrocodone Bitart 1 tab Q4HP PRN PO 06/06/25 10:30 06/07/25 10:04 1 TAB Ondansetron HCl 4 mg Q4HP PRN IV 06/06/25 10:30 06/08/25 12:41 4 MG Docusate Sodium 100 mg BIDPRN PRN PO 06/06/25 10:30 Acetaminophen 650 mg Q6HP PRN PO 06/06/25 10:30 06/07/25 18:14 650 MG Hydralazine HCl 10 mg Q6HP PRN IV 06/06/25 16:15 06/07/25 18:46 10 MG Potassium Chloride/Sodium Chloride 1,000 ml @ 100 mls/hr Q10H IV 06/07/25 14:00 06/08/25 02:00 100 MLS/HR Meropenem 50 ml @ 17 mls/hr Q8HR IV 06/07/25 14:00 06/08/25 05:45 17 MLS/HR Vancomycin HCl 0 ml @ 0 mls/hr PER PHARMACY IV 06/07/25 14:00 Pantoprazole Sodium 40 mg DAILY@0600 PO 06/08/25 06:00 06/08/25 05:46 40 MG Enoxaparin Sodium 40 mg DAILY SC 06/08/25 10:00 06/08/25 09:06 40 MG Vancomycin HCl 100 ml @ 100 mls/hr Q12H IV 06/08/25 01:00 06/08/25 13:02 100 MLS/HR Laboratory Results Laboratory Tests 06/08/25 05:04 Chemistry Test 06/08/25 05:04 06/08/25 13:29 Albumin 3.2 g/dL (3.2-4.8) Calcium Level 8.8 mg/dL (8.7-10.4) Magnesium Level 1.9 mg/dL (1.6-2.6) Pending Total Protein 5.9 g/dL (5.7-8.2) LFT Test 06/08/25 05:04 Alanine Aminotransferase (ALT) 115 U/L (7-40) H Alkaline Phosphatase 305 U/L (46-116) H Aspartate Amino Transferase (AST) 47 U/L (13-40) H Total Bilirubin 1.7 mg/dL (0.2-1.0) H Urinalysis Test 06/06/25 15:50 Urine Color Yellow (Yellow) Urine Clarity Turbid (Clear) H Urine pH 5.5 (5.0-9.0) Urine Specific [place] 1.014 (1.001-1.035) Urine Protein Trace (Negative) H Urine Ketones Negative (Negative) Urine Blood 2+ /uL (Negative) H Urine Nitrite Negative (Negative) Urine Bilirubin Negative (Negative) Urine Urobilinogen 2 mg/dL (Negative) H Urine Leukocyte Esterase 3+ /uL (Negative) Urine RBC 20 /hpf (0 - 3) Urine WBC Clumps Present /hpf (None Seen) Urine Microscopic WBC 273 /HPF (0-3) H Urine Squamous Epithelial Cells None seen /hpf (<5) Urine Bacteria Few /hpf (None Seen) H Urine Glucose 1+ mg/dL (Normal) H Microbiology Microbiology Date/Time Source Procedure Growth Status 06/06/25 15:50 Voided Urine Urine Culture - Preliminary Resulted 06/06/25 09:19 Blood Blood Culture - Preliminary Resulted Labs and/or images reviewed: Labs reviewed by me, Image(s) reviewed by me Assessment/Plan Assessment/Plan Impression: -sepsis , Gram-negative rods in blood -orchitis -complicated cystitis -transaminitis -hypokalemia -hypomagnesemia Plan: Events: CT scan of the abdomen and pelvis reviewed. White blood cell count downtrending. -potassium magnesium replacement -continue current IV fluids -blood and urine cultures -PPI -check PSA -continue Meropenem and vancomycin -repeat labs in a.m. Total time spent with patient discussing and formulating plan of care: 35 minutes. This medical document was created using an electronic medical record system with [employer] dictation system. Although this document has been carefully reviewed, there may still be some phonetic and typographical errors. These areas are purely typographical due to imperfections of the software programs, and do not reflect any compromise in the patient's medical care Plan discussed with: Patient, Other (RN) My Orders Orders - RISSA MORAN UROLOGIST Procedure Category Date Status Time Ct Ab Pel With Iv Con CT 06/07/25 Resulted Only 14:34 Vancomycin 750mg Kit PHA 06/08/25 In Process (Vancomycin Hcl) 01:00 Vancomycin,Trough LAB 06/09/25 Verified 12:00 Vancomycin Per VJ 06/08/25 In Process Pharmacy Protoc 01:00 Potassium LAB 06/08/25 In Process 13:41 Magnesium LAB 06/08/25 In Process 13:41 Psa Total+% Free LAB 06/08/25 In Process 13:44 Basic Metabolic Panel LAB 06/09/25 Verified 05:00 Basic Metabolic Panel LAB 06/10/25 Verified 05:00 Basic Metabolic Panel LAB 06/11/25 Verified 05:00 Complete Blood Count LAB 06/09/25 Verified 05:00 Complete Blood Count LAB 06/10/25 Verified 05:00 Complete Blood Count LAB 06/11/25 Verified 05:00 Date of Service: Jun 08, 2025 Billing Provider: RISSA MORAN NP Common Visit Codes: [id number] INP/OBS CARE(HIGH) RISSA MORAN NP Jun 08, 2025 14:12
--- NOTE | 2025-06-09 14:02 | DVHPN2 ---
Subjective Patient reports that his scrotal pain has improved Reviewed: Care Plan, H&P, Labs, Medications Changes from previous H/P or p: No Changes General: Per HPI Eyes: No Pain, No Vision change, No Conjunctivae inflammation, No Eyelid inflammation, No Other, No Redness ENT: No Ear pain, No Ear discharge, No Nose pain, No Nose discharge, No Nose congestion, No Mouth pain, No Mouth swelling, No Throat pain, No Throat swelling, No Other Cardiovascular: No Chest Pain, No Palpitations, No Orthopnea, No Paroxysmal Noc. Dyspnea, No Edema, No Lt Headedness, No Other Respiratory: No Cough, No Dry, No Shortness of breath, No SOB with excertion, No Wheezing, No Hemoptysis, No Pleuritic Pain, No Sputum, No Other Gastrointestinal: No Nausea, No Vomiting, No Abdominal Pain, No Diarrhea, No Constipation, No Melena, No Hematochezia, No Other Genitourinary: No Dysuria, No Frequency, No Incontinence, No Hematuria; R etention, Other (testicular pain) Musculoskeletal: No other, No neck pain, No shoulder pain, No arm pain, No back pain, No hand pain, No leg pain, No foot pain Skin: No Rash, No Lesions, No Jaundice, No Bruising, No Other Objective Vitals Vital Signs Date Time Temp Pulse Resp B/P (MAP) Pulse Ox O2 Delivery O2 Flow Rate FiO2 06/09/25 12:50 99.5 80 17 153/80 (104) 97 99.5 06/08/25 20:00 Room Air* 0 21 Intake/Output Intake and Output 06/09/25 07:00 Intake Total 1900 ml Balance 1900 ml Intake Oral 1100 ml IV Total 800 ml # Voids 7 General Appearance: Alert, Oriented X3, Cooperative, No acute distress HEENT: Atraumatic, PERRLA Lungs: Clear to auscultation, Normal air movement Cardiovascular: Normal S1, Normal S2 Abdomen: Normal bowel sounds, Soft, No tenderness, No hepatospenomegaly Musculoskeletal: Normal sensory function, Normal motor function Extremities: No clubbing, No cyanosis, No edema, Normal pulses, No tenderness/swelling Neuro: Normal gait, Normal speech Skin: Dry, Intact Psych/Mental Status: Mental status NL, Mood NL Medications Current Medications Medications Dose Ordered Sig/Candi Route Start Time Stop Time Status Last Admin Dose Admin Acetaminophen/ Hydrocodone Bitart 1 tab Q4HP PRN PO 06/06/25 10:30 06/09/25 05:33 1 TAB Ondansetron HCl 4 mg Q4HP PRN IV 06/06/25 10:30 06/08/25 12:41 4 MG Docusate Sodium 100 mg BIDPRN PRN PO 06/06/25 10:30 Acetaminophen 650 mg Q6HP PRN PO 06/06/25 10:30 06/07/25 18:14 650 MG Hydralazine HCl 10 mg Q6HP PRN IV 06/06/25 16:15 06/09/25 01:40 10 MG Potassium Chloride/Sodium Chloride 1,000 ml @ 100 mls/hr Q10H IV 06/07/25 14:00 06/09/25 13:40 100 MLS/HR Meropenem 50 ml @ 17 mls/hr Q8HR IV 06/07/25 14:00 06/09/25 13:50 17 MLS/HR Pantoprazole Sodium 40 mg DAILY@0600 PO 06/08/25 06:00 06/09/25 05:26 40 MG Enoxaparin Sodium 40 mg DAILY SC 06/08/25 10:00 06/09/25 09:02 40 MG Finasteride 5 mg DAILY PO 06/10/25 10:00 UNV Laboratory Results Laboratory Tests 06/09/25 05:37 Chemistry Test 06/09/25 05:37 Calcium Level 8.5 mg/dL (8.7-10.4) L Urinalysis Test 06/06/25 15:50 Urine Color Yellow (Yellow) Urine Clarity Turbid (Clear) H Urine pH 5.5 (5.0-9.0) Urine Specific [place] 1.014 (1.001-1.035) Urine Protein Trace (Negative) H Urine Ketones Negative (Negative) Urine Blood 2+ /uL (Negative) H Urine Nitrite Negative (Negative) Urine Bilirubin Negative (Negative) Urine Urobilinogen 2 mg/dL (Negative) H Urine Leukocyte Esterase 3+ /uL (Negative) Urine RBC 20 /hpf (0 - 3) Urine WBC Clumps Present /hpf (None Seen) Urine Microscopic WBC 273 /HPF (0-3) H Urine Squamous Epithelial Cells None seen /hpf (<5) Urine Bacteria Few /hpf (None Seen) H Urine Glucose 1+ mg/dL (Normal) H Microbiology Microbiology Date/Time Source Procedure Growth Status 06/06/25 15:50 Voided Urine Urine Culture - Final Complete 06/06/25 09:19 Blood Blood Culture - Final Escherichia coli Complete Labs and/or images reviewed: Labs reviewed by me, Image(s) reviewed by me Assessment/Plan Assessment/Plan Impression: -sepsis , Gram-negative rods in blood -orchitis -complicated cystitis -transaminitis -hypokalemia -hypomagnesemia Plan: Events: Repeat blood cultures. White blood cell count improving. Scrotum less swollen. -potassium magnesium replacement -continue IV fluids with potassium replacement -PPI -check PSA: Elevated, urology consultation -stop vancomycin, continue Meropenem until blood cultures final -repeat labs in a.m. Total time spent with patient discussing and formulating plan of care: 35 minutes. This medical document was created using an electronic medical record system with [employer] dictation system. Although this document has been carefully reviewed, there may still be some phonetic and typographical errors. These areas are purely typographical due to imperfections of the software programs, and do not reflect any compromise in the patient's medical care Plan discussed with: Patient, Spouse, Other (RN) My Orders Orders - RISSA MORAN NP Procedure Category Date Status Time Finasteride Tablet PHA 06/10/25 Logged (Proscar Tablet) 10:00 Magnesium Sulfate PHA 06/09/25 Logged 1gm/100ml 13:30 Potassium Effervesent PHA 06/09/25 Logged Tab (Klor-Con/Ef) 13:30 Blood Culture TYLER 06/09/25 Logged 13:26 Date of Service: Jun 09, 2025 Billing Provider: RISSA MORAN NP Common Visit Codes: [id number] INP/OBS CARE(HIGH) RISSA MORAN NP Jun 09, 2025 14:02
[2025-06-09] MEDS: POTASSIUM EFFERVESENT TAB 25 MEQ PO ONE (14:22)
[2025-06-09] MEDS: MAGNESIUM SULFATE 1GM/100ML 100 ML IV ONE (14:23)
[2025-06-10] VITALS (10 sets, daily range): BP systolic 134–157; BP diastolic 61–80; PULSE 79–86; RESP 17–18; TEMP 98–100.3; O2SAT 95–97
[2025-06-10 07:10] LABS: Hematocrit 34.3 % (41.0-53.0); Hemoglobin 11.9 g/dL (13.5-17.5); Mean Corpuscular Hemoglobin 33.8 pg (28.0-32.0); Mean Corpuscular Volume 97.5 fL (80.0-100.0); Nucleated Red Blood Cells % 0.0 %
[2025-06-10 07:14] LABS: Chloride 106 mmol/L (98-107); Potassium 3.5 mmol/L (3.5-5.1); Sodium 139 mmol/L (136-145)
[2025-06-10 07:15] LABS: Anion Gap 10 (5-15); Carbon Dioxide 23 mmol/L (20-31)
[2025-06-10 07:17] LABS: Calcium 8.5 mg/dL (8.7-10.4)
[2025-06-10 07:20] LABS: BUN/Creatinine Ratio 20.6 (10.0-20.0); Blood Urea Nitrogen 13 mg/dL (9-23); Glucose 90 mg/dL (74-106)
[2025-06-10] MEDS: FINASTERIDE 5 MG TAB PO SCH (09:06)
--- NOTE | 2025-06-10 14:40 | DVHPN2 ---
Progress Note Date Seen: Jun 10, 2025 Medical Necessity Reason Pt with a Central, PICC or Fol: No Subjective Patient reports: No new complaints (pain stable) Changes from previous H/P or p: No Changes Objective vital signs Vital Sign Date Time Temp Pulse Resp B/P (MAP) Pulse Ox O2 Delivery O2 Flow Rate FiO2 06/10/25 13:19 98.0 143/62 (89) 98.0 06/10/25 12:44 79 17 95 06/10/25 07:50 Room Air* 0 21 Total Intake and Output 06/09/25 06/09/25 06/10/25 15:00 23:00 07:00 Intake Total 1000 ml 1450 ml 400 ml Output Total 300 ml Balance 1000 ml 1450 ml 100 ml medications Current Medications Medications Dose Ordered Sig/Candi Route Start Time Stop Time Status Last Admin Dose Admin Acetaminophen/ Hydrocodone Bitart 1 tab Q4HP PRN PO 06/06/25 10:30 06/10/25 12:15 1 TAB Ondansetron HCl 4 mg Q4HP PRN IV 06/06/25 10:30 06/08/25 12:41 4 MG Docusate Sodium 100 mg BIDPRN PRN PO 06/06/25 10:30 Acetaminophen 650 mg Q6HP PRN PO 06/06/25 10:30 06/07/25 18:14 650 MG Hydralazine HCl 10 mg Q6HP PRN IV 06/06/25 16:15 06/09/25 01:40 10 MG Potassium Chloride/Sodium Chloride 1,000 ml @ 100 mls/hr Q10H IV 06/07/25 14:00 06/10/25 11:08 100 MLS/HR Meropenem 50 ml @ 17 mls/hr Q8HR IV 06/07/25 14:00 06/10/25 13:47 17 MLS/HR Pantoprazole Sodium 40 mg DAILY@0600 PO 06/08/25 06:00 06/10/25 06:13 40 MG Enoxaparin Sodium 40 mg DAILY SC 06/08/25 10:00 06/10/25 09:06 40 MG Finasteride 5 mg DAILY PO 06/10/25 10:00 06/10/25 09:06 5 MG Examination General Appearance: Alert, Oriented X3, Cooperative, No acute distress HEENT: Atraumatic, PERRLA Lungs: Clear to auscultation, Normal air movement Cardiovascular: Normal S1, Normal S2 Abdomen: Normal bowel sounds, Soft, No tenderness, No hepatospenomegaly Musculoskeletal: Normal sensory function, Normal motor function Extremities: No clubbing, No cyanosis, No edema, Normal pulses, No tenderness/swelling : right scrotum harden, mild tender Neuro: Normal gait, Normal speech Skin: Dry, Intact Psych/Mental Status: Mental status NL, Mood NL laboratory and microbiology Laboratory Tests 06/10/25 06:19 Test 06/10/25 06:19 Range/Units Serum Glucose 90 74-106 mg/dL Microbiology Date/Time Source Procedure Growth Status 06/09/25 14:16 Blood Blood Culture - Preliminary NO GROWTH AFTER 24 HOURS OF INCUBATION. Resulted 06/06/25 15:50 Voided Urine Urine Culture - Final Complete Labs and/or images reviewed: Labs reviewed by me, Image(s) reviewed by me Problem List/Assessment/Plan Problem List/Assessment/Plan -sepsis due to cystitis -ecoli bacteremia -orchitis -complicated cystitis -transaminitis -hypokalemia -hypomagnesemia Plan: Events: Repeat blood cultures negative. White blood cell count improving. Scrotum less swollen. -potassium magnesium replacement -continue IV fluids with potassium replacement -PPI -urology consulted. -stop vancomycin, DC meropenem -Switch to ceftriaxone 1g qd -monitor for pain and wbc Total time spent with patient discussing and formulating plan of care: 35 minutes. Plan discussed with: Patient, Spouse Dietary Evaluation Review Comments: 1) Continue 2g Na diet 2) Encourage optimal PO intake 3) Follow-up with urology 4) Continue to monitor I&O, labs, and skin integrity Expected Outcomes/Goals: 1) appetite and labs to improve 2) f/u in 3-5 days Date of Service: Jun 10, 2025 Billing Provider: DON MARTIN MD Common Visit Codes: [id number] SAME DATE (HIGH) DON MARTIN MD Jun 10, 2025 14:40
[2025-06-11] VITALS (8 sets, daily range): BP systolic 135–152; BP diastolic 52–75; PULSE 80–93; RESP 16–18; TEMP 98.4–100.2; O2SAT 92–96
[2025-06-11 06:26] LABS: Hematocrit 34.0 % (41.0-53.0); Hemoglobin 11.9 g/dL (13.5-17.5); Mean Corpuscular Hemoglobin 34.1 pg (28.0-32.0); Mean Corpuscular Volume 97.3 fL (80.0-100.0); Nucleated Red Blood Cells % 0.0 %
[2025-06-11 06:33] LABS: Anion Gap 11 (5-15); BUN/Creatinine Ratio 21.3 (10.0-20.0); Blood Urea Nitrogen 10 mg/dL (9-23); Calcium 8.8 mg/dL (8.7-10.4); Carbon Dioxide 20 mmol/L (20-31); Chloride 105 mmol/L (98-107); Glucose 94 mg/dL (74-106); Magnesium 1.8 mg/dL (1.6-2.6); Sodium 136 mmol/L (136-145); Total Protein 6.4 g/dL (5.7-8.2)
[2025-06-11 06:34] LABS: Albumin 3.3 g/dL (3.2-4.8); Bilirubin, Total 1.1 mg/dL (0.2-1.0)
[2025-06-11 06:36] LABS: Alanine Aminotransferase 113 U/L (7-40); Alkaline Phosphatase 254 U/L (46-116); Potassium 3.4 mmol/L (3.5-5.1)
[2025-06-11] MEDS: POTASSIUM EFFERVESENT TAB 25 MEQ PO ONE (11:27)
--- NOTE | 2025-06-11 12:16 | DVH ---
ULTRASOUND OF SCROTUM AND CONTENTS. INDICATION: right scrotal pain not resolving COMPARISON: US TESTICULAR ULTRASOUND on DOS: 06/06/25 TECHNIQUE: Multiple real-time grayscale sonographic and color and duplex Doppler images of the scrotu m and its contents were obtained. FINDINGS: RIGHT TESTICLE: Measures 4.4 X 3.8 X 3.6 CM. RIGHT TESTICULAR VOLUME IS 31 ML. RIGHT EPIDIDYMIS 1.4 CM RIGHT HYDROCELE WITH SEPTATIONS, 2 X 0.9 X 1.7 CM LEFT TESTICLE: Measures 4 X 2.5 X 3.1 cm. LEFT TESTICULAR VOLUME 16 ML SMALL LEFT HYDROCELE LEFT EPIDIDYMIS 1.3 CM Both testicles demonstrate homogeneous echotexture without evidence of focal lesions. The right epididymal head measures 1.4 cm. The left epididymal head measures 1.3 cm. Subsequent color and duplex Doppler interrogation of the testes demonstrated symmetric normal vascula r flow to both testicles. NO focal areas of hyperemia were seen. IMPRESSION: 1. No evidence of torsion, epididymitis, and/or orchitis. 2. RIGHT TESTICLE MEASURES 4.4 X 3.8 BY 3.6 CM 3. Right hydrocele measures 2 x 0.9 x 1.7 cm and is septated 4. Right epididymis measures 1.4 cm 5. Left testicle measures 4 x 2.5 x 3.1 cm 6. Volume of the left testicle is 16 mL 7. Trace left hydrocele 9. Left epididymis 1.3 cm
--- NOTE | 2025-06-11 13:21 | DVHPN2 ---
Progress Note Date Seen: Jun 11, 2025 Medical Necessity Reason Pt with a Central, PICC or Fol: No Subjective Patient reports: Feels better Changes from previous H/P or p: No Changes Objective vital signs Vital Sign Date Time Temp Pulse Resp B/P (MAP) Pulse Ox O2 Delivery O2 Flow Rate FiO2 06/11/25 09:05 98.8 93 18 143/52 (82) 92 98.8 06/11/25 08:00 Room Air* 0 21 Total Intake and Output 06/10/25 06/10/25 06/11/25 15:00 23:00 07:00 Intake Total 800 ml 1850 ml 550 ml Output Total 800 ml Balance 800 ml 1850 ml -250 ml medications Current Medications Medications Dose Ordered Sig/Candi Route Start Time Stop Time Status Last Admin Dose Admin Acetaminophen/ Hydrocodone Bitart 1 tab Q4HP PRN PO 06/06/25 10:30 06/11/25 11:28 1 TAB Ondansetron HCl 4 mg Q4HP PRN IV 06/06/25 10:30 06/08/25 12:41 4 MG Docusate Sodium 100 mg BIDPRN PRN PO 06/06/25 10:30 Acetaminophen 650 mg Q6HP PRN PO 06/06/25 10:30 06/10/25 16:38 650 MG Hydralazine HCl 10 mg Q6HP PRN IV 06/06/25 16:15 06/10/25 16:38 10 MG Pantoprazole Sodium 40 mg DAILY@0600 PO 06/08/25 06:00 06/11/25 05:22 40 MG Enoxaparin Sodium 40 mg DAILY SC 06/08/25 10:00 06/10/25 09:06 40 MG Finasteride 5 mg DAILY PO 06/10/25 10:00 06/11/25 11:32 5 MG Levofloxacin/ Dextrose 100 ml @ 100 mls/hr DAILY IV 06/11/25 10:00 Examination Generally-61 years old male, well nourished well developed. Resting comfortably in bed. No apparent distress HEENT-atraumatic normocephalic heart-regular rate and rhythm Lungs clear to auscultate Abdomen soft nontender nondistended Musculoskeletal-no edema cyanosis -right scrotum tender, edematous Neuro-AO x3, no focal deficits laboratory and microbiology Laboratory Tests 06/11/25 05:38 Test 06/11/25 05:38 Range/Units Serum Glucose 94 74-106 mg/dL Microbiology Date/Time Source Procedure Growth Status 06/09/25 14:16 Blood Blood Culture - Preliminary NO GROWTH AFTER 24 HOURS OF INCUBATION. Resulted 06/06/25 15:50 Voided Urine Urine Culture - Final Complete Problem List/Assessment/Plan Problem List/Assessment/Plan -sepsis due to cystitis -ecoli bacteremia -orchitis -complicated cystitis -transaminitis -hypokalemia -hypomagnesemia Plan: WBC trended down to normal Events: Repeat blood cultures negative. White blood cell count improving. Scrotum less swollen. -potassium magnesium replacement -continue IV fluids with potassium replacement -PPI -urology consulted. Pending further recommendation. Patient has positive PSA due to urinary tract infection and BPH -stop vancomycin, DC meropenem -Switch to Levaquin daily. Follow up with the Urology for further recommendation regarding outpatient follow-up and PSA repeat Start tamsulosin for BPH Total time spent with patient discussing and formulating plan of care: 35 minutes. Plan discussed with: Patient, Spouse, Daughter My Orders My Orders Orders - DON MARTIN MD Procedure Category Date Status Time Comprehensive LAB 06/12/25 Verified Metabolic Panel 05:00 Comprehensive LAB 06/13/25 Verified Metabolic Panel 05:00 Comprehensive LAB 06/14/25 Verified Metabolic Panel 05:00 Comprehensive LAB 06/15/25 Verified Metabolic Panel 05:00 Magnesium LAB 06/12/25 Verified 05:00 Magnesium LAB 06/13/25 Verified 05:00 Magnesium LAB 06/14/25 Verified 05:00 Magnesium LAB 06/15/25 Verified 05:00 Levofloxacin 500mg PHA 06/11/25 In Process (Levaquin 500mg/ 100m 10:00 Electrocardigram EKG 06/11/25 Logged 12:39 Dietary Evaluation Review Comments: 1) Continue 2g Na diet 2) Encourage optimal PO intake 3) Follow-up with urology 4) Continue to monitor I&O, labs, and skin integrity Expected Outcomes/Goals: 1) appetite and labs to improve 2) f/u in 3-5 days Date of Service: Jun 11, 2025 Billing Provider: DON MARTIN MD Common Visit Codes: [id number] SAME DATE (HIGH) DON MARTIN MD Jun 11, 2025 13:21
[2025-06-12 01:00] VITALS: BP 142/69; PULSE 83; RESP 17; TEMP 100.1; O2SAT 96
[2025-06-12 05:00] VITALS: BP 127/61; PULSE 70; RESP 18; TEMP 97.9; O2SAT 94
[2025-06-12 06:14] LABS: Anion Gap 11 (5-15); BUN/Creatinine Ratio 21.3 (10.0-20.0); Blood Urea Nitrogen 10 mg/dL (9-23); Calcium 8.9 mg/dL (8.7-10.4); Carbon Dioxide 22 mmol/L (20-31); Chloride 103 mmol/L (98-107); Glucose 97 mg/dL (74-106); Magnesium 1.9 mg/dL (1.6-2.6); Total Protein 6.4 g/dL (5.7-8.2)
[2025-06-12 06:15] LABS: Albumin 3.2 g/dL (3.2-4.8)
[2025-06-12 06:16] LABS: Bilirubin, Total 0.8 mg/dL (0.2-1.0)
[2025-06-12 06:21] LABS: Alanine Aminotransferase 113 U/L (7-40); Alkaline Phosphatase 236 U/L (46-116); Potassium 3.2 mmol/L (3.5-5.1); Sodium 136 mmol/L (136-145)
--- NOTE | 2025-06-12 07:34 | ECG ---
[facility] Test Date: 2025-06-11 Test Time: 10:14:44 Pat Name: BISHOP ZUNIGA Department: Room: 0220 B Gender: M Lead Refiner: RANDY : 1965 Requested By: DON MARTIN Order Number: [id number] Reading MD: Juan Aguilar Measurements Intervals [place] Rate: 88 P: 52 MT: 151 QRS: 39 QRSD: 99 T: -1 QT: 355 QTc: 430 Interpretive Statements Sinus rhythm Inferior infarct, old Lateral leads are also involved Electronically Signed On 06-13-2025 13:08:07 PST by Juan Aguilar Please click the below link to view image of tracing.
[2025-06-12 08:00] VITALS: PULSE 82; RESP 18
[2025-06-12 08:20] LABS: Hematocrit 33.2 % (41.0-53.0); Hemoglobin 11.6 g/dL (13.5-17.5); Mean Corpuscular Hemoglobin 33.9 pg (28.0-32.0); Mean Corpuscular Volume 97.1 fL (80.0-100.0)
[2025-06-12 09:00] VITALS: BP 126/68; PULSE 82; RESP 18; TEMP 98.2; O2SAT 97
[2025-06-12] MEDS ORDERED: POTASSIUM EFFERVESENT TAB 25 MEQ PO ONE (09:00)
--- NOTE | 2025-06-12 09:44 | DVHDS2 ---
Discharge Summary Date of Admission Jun 06, 2025 at 10:28 Date of Discharge: Jun 12, 2025 Admitting Diagnosis Orchitis/epididymitis Labs/Diagnostic Data: Laboratory Results Test 06/12/25 05:23 06/11/25 05:38 06/09/25 11:52 06/08/25 13:29 White Blood Count 9.4 10^3/uL (4.4-10.8) Red Blood Count 3.42 10^6/uL (4.5-5.90) Hemoglobin 11.6 g/dL (13.5-17.5) Hematocrit 33.2 % (41.0-53.0) Mean Corpuscular Volume 97.1 fL (80.0-100.0) Mean Corpuscular Hemoglobin 33.9 pg (28.0-32.0) Mean Corpuscular Hemoglobin Concent 34.9 g/dL (32.0-36.0) Red Cell Distribution Width 13.4 % (11.8-14.3) Platelet Count 453 10^3/uL (140-450) Mean Platelet Volume 8.3 fL (6.9-10.8) Neutrophils (%) (Auto) % (37.0-80.0) Lymphocytes (%) (Auto) % (10.0-50.0) Monocytes (%) (Auto) % (0.0-12.0) Basophils (%) (Auto) % (0.0-2.0) Neutrophils # (Auto) 10 ^3/uL (1.6-8.6) Lymphocytes # (Auto) 10 ^3/uL (0.4-5.4) Monocytes # (Auto) 10 ^3/uL (0-1.3) Sodium Level 136 mmol/L (136-145) Potassium Level 3.2 mmol/L (3.5-5.1) Chloride Level 103 mmol/L (98-107) Carbon Dioxide Level 22 mmol/L (20-31) Anion Gap 11 (5-15) Blood Urea Nitrogen 10 mg/dL (9-23) Creatinine 0.47 mg/dL (0.700-1.30) Glomerular Filtration Rate Calc 118 mL/min (>90) BUN/Creatinine Ratio 21.3 (10.0-20.0) Serum Glucose 97 mg/dL (74-106) Calcium Level 8.9 mg/dL (8.7-10.4) Magnesium Level 1.9 mg/dL (1.6-2.6) Total Bilirubin 0.8 mg/dL (0.2-1.0) Aspartate Amino Transferase (AST) 74 U/L (13-40) Alanine Aminotransferase (ALT) 113 U/L (7-40) Alkaline Phosphatase 236 U/L (46-116) Total Protein 6.4 g/dL (5.7-8.2) Albumin 3.2 g/dL (3.2-4.8) Eosinophils (%) (Auto) 1.5 % (0.0-7.0) Eosinophils # (Auto) 0.2 10 ^3/uL (0-0.8) Basophils # (Auto) 0 10 ^3/uL (0-0.2) Nucleated Red Blood Cells 0.0 % C-Reactive Protein High Sensitivity 18.77 mg/dL (<1.0) Vancomycin Level Trough 6.6 ug/mL (5-10) Free Prostate Specific Antigen 0.81 ng/mL (N/A) Percent Free Prostate Specific Ag 3.4 % (.) Prostate Specific Antigen Total 24.0 ng/mL (0.0-4.0) Test 06/07/25 05:18 06/06/25 20:48 06/06/25 17:05 06/06/25 15:50 Stomatocytes Few Erythrocyte Sedimentation Rate 94 mm/hr (0-20) Ammonia < 10 umol/L (11-32) Lactic Acid Level 1.3 mmol/L (0.4-2.0) Prothrombin Time 11.4 sec (9.3-11.8) Prothrombin Time INR 1.08 (0.9-1.15) Activated Partial Thromboplast Time 30.0 SEC (24.5-34.5) Urine Color Yellow (Yellow) Urine Clarity Turbid (Clear) Urine pH 5.5 (5.0-9.0) Urine Specific [place] 1.014 (1.001-1.035) Urine Protein Trace (Negative) Urine Ketones Negative (Negative) Urine Blood 2+ /uL (Negative) Urine Nitrite Negative (Negative) Urine Bilirubin Negative (Negative) Urine Urobilinogen 2 mg/dL (Negative) Urine Leukocyte Esterase 3+ /uL (Negative) Urine RBC 20 /hpf (0 - 3) Urine WBC Clumps Present /hpf (None Seen) Urine Microscopic WBC 273 /HPF (0-3) Urine Squamous Epithelial Cells None seen /hpf (<5) Urine Bacteria Few /hpf (None Seen) Urine Glucose 1+ mg/dL (Normal) Chlamydia trachomatis (THANG) Negative (Negative) Neisseria gonorrhoeae (THANG) Negative (Negative) Test 06/06/25 08:28 Smudge Cells 2 /100 WBC Large Platelets Few Giant Platelets Few Other Laboratory Tests 06/12/25 05:23 Brief Hx & Hospital Course: History of Present Illness Abdulkadir Esquivel is a 60-year-old male with no significant past medical history who came to the hospital for right testicular pain and difficulty urinating. Patient states his pain began yesterday about 1600. He states his right testicle is swollen and very painful to the touch. Denies ever having a problem like this before. Course of hospitalization: Patient was found to have severely elevated leukocytosis with reports of generalized body aches, generalized weakness, as well as testicular swelling. Blood cultures came back positive for E coli, with repeat blood culture clearing after 72 hours. Patient was started on empiric antibiotic therapy with Meropenem and vancomycin given patient's sepsis presentation. Antibiotic therapy has been deescalated to Levaquin. Patient's PSA was noted to be elevated. Urology consultation was obtained with recommendations reviewed. Patient will have potassium replete then be discharged home today. He will follow up with the discharge Clinic in one week, and be continued on antibiotic therapy in the form of Levaquin for additional seven days. He is instructed to stop smoking. All questions answered. Physical examination General: Alert and Oriented x3. No acute distress. Well-nourished. Obese Eyes: EOMI. Anicteric. HENT: Moist mucous membranes. Lungs: Clear to auscultation bilaterally. No accessory muscle use. Cardiovascular: Regular rate and rhythm. No murmur. No JVD. Abdomen: Soft, non-tender and non-distended. No palpable masses. Reproductive: Testicular swelling Extremities: No edema. Non-tender. Skin: No rashes or lesions. Warm. Neurologic: No focal neurological deficits. CN II-XII grossly intact, but not individually tested. Psychiatric: Cooperative. Appropriate mood and affect. Total time spent with patient discussing and formulating plan of care: 35 minutes. Smoking cessation education: 10 minutes spent with the patient on the need to stop smoking. This medical document was created using an electronic medical record system with [employer] dictation system. Although this document has been carefully reviewed, there may still be some phonetic and typographical errors. These areas are purely typographical due to imperfections of the software programs, and do not reflect any compromise in the patient's medical care. Consults/Reason for consult Urology: Testicular swelling Condition at Discharge: Guarded Final Diagnosis/Problems List Sepsis secondary to E coli in the blood -orchitis -complicated cystitis -transaminitis -hypokalemia -hypomagnesemia Discharge Disposition: Home Discharge Instruct/Medications Diet: Regular Activity: No Restrictions, As Tolerated Follow Up/Referral: Follow up with the discharge Clinic one week Follow up with PCP in 1-2 weeks Medications: Levaquin 500 mg p.o. daily x7 days 36 Discharge Statement: "Patient was advised to return to the ER or call 911 if any headaches, dizziness, shortness of breath, chest pain, abdominal pain, bleeding, fevers, or worsening of medical condition. Patient was counseled about treatment plan, medications, possible side effects, patientverbalized understanding. All questions were answered to the best of my ability. This discharge took greater then 30 minutes in planning, reviewing documentation, counseling the patient, and discussing with other team members." ASSESSMENT ASSESSMENT Assessment Sepsis secondary to E coli in the blood Date of Service: Jun 12, 2025 Billing Provider: RISSA MORAN NP Common Visit Codes: [id number] DISCH DAY >30min RISSA MORAN NP Jun 12, 2025 09:44
[2025-06-12 09:48] LABS: Stomatocytes Few; Total Cells Counted 100.0 (100)
[2025-06-12] MEDS ORDERED: POTASSIUM CHL 20 Meq TABLET PO ONE (10:00)
[2025-06-12] MEDS: POTASSIUM CHL 20 Meq TABLET PO ONE (10:34)
[2025-06-12] MEDS ORDERED: LEVO500T91 PO (11:21)
[2025-06-12 13:00] VITALS: BP 126/69; PULSE 86; RESP 16; TEMP 98.2; O2SAT 94
== END 2025-06-12 15:20 | disposition home or self-care (01) | DRG 872 ==
LOC: ER 05:14 → OVERFLOW 10:28 → ER 10:33 → CENTRAL 11:37
PROVIDERS: ADMIT Nurse Practitioner Acute Care; ATTEND Nurse Practitioner Acute Care
DX: A41.51 Sepsis due to Escherichia coli [E. coli] (principal); E87.20 Acidosis, unspecified; N45.3 Epididymo-orchitis; N43.3 Hydrocele, unspecified; E87.6 Hypokalemia; N30.90 Cystitis, unspecified without hematuria; E83.42 Hypomagnesemia; R74.01 Elevation of levels of liver transaminase levels; F17.200 Nicotine dependence, unspecified, uncomplicated; Z83.3 Family history of diabetes mellitus; Z82.49 Family history of ischemic heart disease and other diseases of the circulatory system; Z81.8 Family history of other mental and behavioral disorders
CPT/HCPCS: 36415; 74177; 76705; 76775; 76870; 80048; 80053; 80202; 81001; 82140; 83605; 83735; 84132; 84154; 85007; 85025; 85027; 85610; 85652; 85730; 86141; 87040; 87077; 87086; 87186; 93005; 96361; 96365; 96375; G0378; J1956; J2185; J2405; J3490